=== PATIENT | female | born 1985 | race Caucasian/White ===

== ENCOUNTER 2016-10-28 12:23 | Emergency (ER) | payer SELFPAY ==
[~2016-10-28] VITALS: Ht 172.7 cm; Wt 101.3 kg
[2016-10-28 12:26] VITALS: BP 129/82
[2016-10-28] MEDS ORDERED: BACITRACIN ZINC OINT 500U/GM, 0.9 GM ONE (13:10)
[2016-10-28] MEDS ORDERED: OXYcodone/APAP 5/325MG TABLET ONE (13:22)
[2016-10-28] MEDS ORDERED: NAPROXEN 500 MG TABLET PO ONE (13:30)
[2016-10-28] MEDS ORDERED: OXYcodone/APAP 5/325MG TABLET PO ONE (13:30)
[2016-10-28] MEDS ORDERED: KETOROLAC 30 MG/1 ML ONE (13:43)
[2016-10-28] MEDS ORDERED: KETOROLAC 30 MG/1 ML IM ONE (14:00)
== END 2016-10-28 14:11 | disposition home or self-care (01) ==
LOC: ED 14:00
DX: M79.674 Pain in right toe(s) (principal)
CPT/HCPCS: 96372; 99283; J1885